=== PATIENT | male | born 1965 | race Caucasian/White ===

== ENCOUNTER 2017-05-27 15:37 | Emergency (ER) | payer MEDICAID ==
--- NOTE | 2017-05-27 15:50 | CPEKG ---
Heart Rate: 89 RR Interval: 674 P-R Interval: 164 QRSD Interval: 98 QT Interval: 376 QTC Interval: 458 P [place]: -27 QRS Preston: -47 T Wave [place]: 47 EKG Severity - ABNORMAL ECG - EKG Impression: SINUS RHYTHM EKG Impression: LEFT ANTERIOR FASCICULAR BLOCK Electronically Signed By: Gunnar Ulloa 27-May-2017 15:54:58
[2017-05-27] MEDS ORDERED: NS 1,000 ML IV ONE ×2 (15:51→16:56)
[2017-05-27] MEDS ORDERED: ONDANSETRON 4 MG/2 ML VIAL IVP ONE (15:51)
--- NOTE | 2017-05-27 15:54 | EDPHY ---
H & P Time Seen by Provider: 05/27/17 15:43 HPI/ROS: CHIEF COMPLAINT: Chest pain and nausea HISTORY OF PRESENT ILLNESS: Patient started by having nausea and vomiting yesterday. He had no hematemesis or coffee-ground emesis and no diarrhea. He is not sure if he was exposed to someone sick. Today developed a mild headache and still has some nausea but no more vomiting. No diarrhea. Developed some sharp left-sided chest pain little bit worse with deep respiration. No recent travel or immobilization. No cough or hemoptysis. No leg swelling. REVIEW OF SYSTEMS: Eye: no change in vision ENT: no sore throat Cardiac: HPI Pulmonary: HPI Abdomen: HPI Musculoskeletal: no back pain Skin: no rash Neuro: no headache Constitutional: no fever : no urinary symptoms A comprehensive 10 point review of systems is otherwise negative aside from elements mentioned in the history of present illness. PAST MEDICAL HISTORY: Includes bipolar, reflux, hypothyroid. No diabetes, [place] patient Dr. Ch. Social history: No recent alcohol, nonsmoker, no cocaine. General Appearance: Alert and conversant, cooperative. Eyes: No scleral icterus. ENT, Mouth: Normal mucous membranes. No facial swelling, no angioedema, no trismus. Respiratory: Normal respiratory effort, breath sounds equal, lungs are clear to auscultation. Cardiovascular: Regular rate and rhythm. Gastrointestinal: Abdomen is soft and non tender. Neurological: Alert, face symmetric, normal motor and sensory in extremities. Ambulatory, not ataxic. No discoordination. No pronator drift. Skin: Warm and dry, no rashes. Not diaphoretic. Musculoskeletal: No peripheral edema. No calf tenderness. Normal range of motion of the neck. Psychiatric: Not agitated. Emergency Department course/MDM: EKG is nonacute, if negative troponin I think he has a low risk presentation by HEART score and could be discharged from a cardiac standpoint. Zofran 4 mg IV for nausea and vomiting, does not have surgical abdominal exam. 1706: Says he still has a headache, can not take acetaminophen or opioids or nonsteroidals. Says he is allergic to phenothiazines. Dexamethasone 10 mg IV. 1740: Just a little bit of a headache, says he does not want any more medications are wants to go home, says he has been having a headache when he "interacts with other people"and sometimes with exertion for couple of months now. He does not look septic or toxic, does not have meningeal signs. No facial rash. Referred back to his primary care doctor. Smiling, cheerful, does not appear in acute distress. Smoking Status: Former smoker Constitutional: Initial Vital Signs Temperature (C) 37.1 C 05/27/17 15:40 Heart Rate 91 05/27/17 15:40 Respiratory Rate 18 05/27/17 15:40 Blood Pressure 176/116 H 05/27/17 15:40 O2 Sat (%) 94 05/27/17 15:40 O2 Delivery Mode Room Air Allergies/Adverse Reactions: meperidine HCl [From Demerol] Allergy (Verified 05/27/17 15:39) prochlorperazine [From Compazine] Allergy (Verified 05/27/17 17:03) opiates Allergy (Uncoded 05/27/17 15:39) Home Medications: Medication Instructions Recorded LaMICtal 10/29/13 [place] Carbonate 10/29/13 PRILOSEC 10/29/13 Seroquel 100 mg (RX) 10/29/13 Lamictal 09/23/15 [place] Aspartate 09/23/15 Seroquel 09/23/15 traZODone 05/27/17 Medical Decision Making - Diagnostics EKG Interpretation: 12-lead EKG interpreted by me; official reading is in trace master. My interpretation is sinus rhythm rate 89 with left anterior fascicular block and no ischemic changes. Imaging Results: Imaging Impressions Chest X-Ray 05/27/17 15:51 Impression: No active cardiopulmonary disease seen. Normal chest x-ray Imaging: I viewed and interpreted images myself Differential Diagnosis: Differential diagnosis considered for chest pain including but not limited to myocardial ischemia, aortic dissection, pericarditis, pulmonary embolus, chest wall pain, pleural inflammation and pulmonary infectious causes. - Data Points Laboratory Results: Laboratory Results 05/27/17 16:00 05/27/17 16:00 05/27/17 05/27/17 05/27/17 16:00 16:00 16:00 WBC 8.52 10^3/uL 10^3/uL (3.80-9.50) RBC 5.26 10^6/uL 10^6/uL (4.40-6.38) Hgb 15.9 g/dL g/dL (13.7-17.5) Hct 44.8 % % (40.0-51.0) MCV 85.2 fL fL (81.5-99.8) MCH 30.2 pg pg (27.9-34.1) MCHC 35.5 g/dL g/dL (32.4-36.7) RDW 12.5 % % (11.5-15.2) Plt Count 305 10^3/uL 10^3/uL (150-400) MPV 9.8 fL fL (8.7-11.7) Neut % (Auto) 74.2 % % (39.3-74.2) Lymph % (Auto) 16.9 % % (15.0-45.0) [place] % (Auto) 6.9 % % (4.5-13.0) Eos % (Auto) 1.1 % % (0.6-7.6) Baso % (Auto) 0.4 % % (0.3-1.7) Nucleat RBC Rel Count 0.0 % % (0.0-0.2) Absolute Neuts (auto) 6.33 10^3/uL 10^3/uL (1.70-6.50) Absolute Lymphs (auto) 1.44 10^3/uL 10^3/uL (1.00-3.00) Absolute Monos (auto) 0.59 10^3/uL 10^3/uL (0.30-0.80) Absolute Eos (auto) 0.09 10^3/uL 10^3/uL (0.03-0.40) Absolute Basos (auto) 0.03 10^3/uL 10^3/uL (0.02-0.10) Absolute Nucleated RBC 0.00 10^3/uL 10^3/uL (0-0.01) Immature Gran % 0.5 % % (0.0-1.1) Immature Gran # 0.04 10^3/uL 10^3/uL (0.00-0.10) Sodium 142 mEq/L mEq/L (135-145) Potassium 3.8 mEq/L mEq/L (3.5-5.2) Chloride 107 mEq/L mEq/L (97-110) Carbon Dioxide 20 mEq/l L mEq/l (22-31) Anion Gap 15 mEq/L mEq/L (8-16) BUN 15 mg/dL mg/dL (7-23) Creatinine 1.1 mg/dL mg/dL (0.7-1.3) Estimated GFR > 60 Glucose 128 mg/dL H mg/dL (70-100) Calcium 10.0 mg/dL mg/dL (8.5-10.4) Troponin I < 0.012 ng/mL ng/mL (0.000-0.034) [place] < 0.2 mEq/L L mEq/L (0.6-1.2) Medications Given: Discontinued Medications Dexamethasone (Decadron Injection) 10 mg IVP EDNOW ONE Stop: 05/27/17 17:07 Last Admin: 05/27/17 17:09 Dose: 10 mg Sodium Chloride (Ns) 1,000 mls @ 0 mls/hr IV EDNOW ONE; Wide Open PRN Reason: Protocol Stop: 05/27/17 15:52 Last Admin: 05/27/17 16:06 Dose: 1,000 mls Sodium Chloride (Ns) 1,000 mls @ 0 mls/hr IV EDNOW ONE; Wide Open PRN Reason: Protocol Stop: 05/27/17 16:57 Last Admin: 05/27/17 17:04 Dose: 1,000 mls Ondansetron HCl (Zofran) 4 mg IVP EDNOW ONE Stop: 05/27/17 15:52 Last Admin: 05/27/17 16:07 Dose: 4 mg Departure - Departure Disposition: Home, Routine, Self-Care Clinical Impression: Chest pain Qualifiers: Chest pain type: unspecified Qualified Code(s): R07.9 - Chest pain, unspecified Nausea & vomiting Qualifiers: Vomiting type: unspecified Vomiting Intractability: non-intractable Qualified Code(s): R11.2 - Nausea with vomiting, unspecified Condition: Good Instructions: Chest Pain (ED) Referrals: [facility] ,. [Primary Care Provider] - As per Instructions
[2017-05-27 16:09] LABS: PLATELET COUNT 305 10^3/uL (150-400)
[2017-05-27] MEDS ORDERED: PROMETHAZINE HCL 25 MG/ML INJ IVP ONE (16:56)
[2017-05-27] MEDS ORDERED: DEXAMETHASONE 4 MG/ML VIAL IVP ONE (17:06)
[2017-05-27 17:56] VITALS: BP 169/118; PULSE 83; RESP 16; TEMP 98.2; O2SAT 96
== END 2017-05-27 17:58 | disposition home or self-care (01) ==
DX: R07.9 Chest pain, unspecified (principal); R11.2 Nausea with vomiting, unspecified; E86.9 Volume depletion, unspecified; Z87.891 Personal history of nicotine dependence
CPT/HCPCS: 96374; J1100; J2405; J2550

== ENCOUNTER 2017-12-16 14:23 | Emergency (ER) | payer OTHER, MEDICAID ==
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
[2017-12-16 14:34] VITALS: BP 147/107
== END 2017-12-16 14:54 | disposition home or self-care (01) ==
LOC: EDUNIT#
DX: M54.5 Low back pain (principal); V89.0XXA Person injured in unspecified motor-vehicle accident, nontraffic, initial encounter; Z87.891 Personal history of nicotine dependence